=== PATIENT | male | born 1990 | race Caucasian/White ===

== ENCOUNTER 2022-03-14 11:55 | Emergency (ER) | payer SELFPAY ==
[~2022-03-14] VITALS: Ht 170.2 cm; Wt 73.0 kg
[2022-03-14 12:01] VITALS: BP 110/73
--- NOTE | 2022-03-14 12:16 | NUR ---
SWABS WALKED TO LAB
--- NOTE | 2022-03-14 12:18 | NUR ---
31 Y/O MALE BIB SELF C/O BODY ACHES AND FATIGUE X 4DAYS. WAS TESTED FOR COVID/FLU 4 MONTHS AGO. DENIES ANY N/V/D/ABD PAIN, COUGH, SOB, FEVERS NKA PMH: DENIES
--- NOTE | 2022-03-14 13:00 | NUR ---
Patient discharged with v/s stable. Written and verbal after care instructions given and explained. Patient verbalized understanding. Ambulatory with steady gait. All questions addressed prior to discharge. Advised to follow up with PMD.
[2022-03-14] MEDS: NACL 0.9% 1,000 ML IV SCH ×2 (13:25→14:41)
[2022-03-14 13:41] LABS: BASOPHILS # (AUTO) 0.1 K/uL (0.00-0.22); EOSINOPHILS # (AUTO) 0.3 K/uL (0-0.4); EOSINOPHILS % (AUTO) 3.4 % (0.0-4.0); HEMATOCRIT 41.9 % (36-52); HEMOGLOBIN 13.8 g/dL (12.0-18.0); LYMPHOCYTES # (AUTO) 2.3 K/uL (2.0-11.5); LYMPHOCYTES % (AUTO) 28.6 % (20.5-51.1); MEAN CORPUSCULAR HEMOGLOBIN 31 pg (27-31); MEAN CORPUSCULAR HGB CONC 33 g/dL (33-37); MEAN CORPUSCULAR VOLUME 94.3 fL (80-94); MONOCYTES % (AUTO) 12.4 % (1.7-9.3); NEUTROPHILS # (AUTO) 4.3 K/uL (1.8-7.7); NEUTROPHILS % (AUTO) 54.6 % (42.2-75.2); PLATELET COUNT (AUTO) 267 K/uL (140-450); RED BLOOD CELL COUNT(AUTO) 4.45 MIL/uL (4.20-6.10); RED CELL DISTRIBUTION WIDTH 14.1 % (11.6-13.7)
[2022-03-14 13:56] LABS: ALBUMIN 3.5 g/dL (3.4-5.0); ANION GAP 11.3 (8-16); CARBON DIOXIDE 26.8 mmol/L (21-32); CREATININE 1.1 mg/dL (0.6-1.3); POTASSIUM 4.1 mmol/L (3.5-5.1); TOTAL BILIRUBIN 0.1 mg/dL (0.0-1.0)
[2022-03-14 15:00] VITALS: BP 110/73
--- NOTE | 2022-03-14 16:53 | NUR ---
Chart checked and completed. The patient's care was reviewed and supervised by Martha Hu RN.
== END 2022-03-14 13:00 | disposition home or self-care (01) ==
LOC: MED 11:55
DX: R53.1 Weakness (principal); Z20.822 Contact with and (suspected) exposure to COVID-19; E86.0 Dehydration; F17.210 Nicotine dependence, cigarettes, uncomplicated; F15.90 Other stimulant use, unspecified, uncomplicated; F12.90 Cannabis use, unspecified, uncomplicated; Z72.89 Other problems related to lifestyle
CPT/HCPCS: 36415; 80053; 82550; 85025; 93005; 96360; 99284; J7030